=== PATIENT | male | born 1960 | race Caucasian/White ===

== ENCOUNTER 2019-04-23 10:00 | Outpatient (RCR) | payer MEDICAID, SELFPAY ==
--- NOTE | 2019-04-23 17:52 | HP.OTFCE_ITS ---
HP OT Functional Capacity Eval Date of Evaluation: 04/23/19 - two day FCE occuring 04/17/19 and 04/23/19 - Task Lift Floor (Occasional 1-33% of Day): 20 lbs Floor (Frequent 34-66% of Day): 10 lbs Floor (Constant 67-100% of Day): negligible Floor PDL: Light Knee (Occasional 1-33% of Day): 20 lbs Knee (Frequent 34-66% of Day): 10 lbs Knee (Constant 67-100% of Day): negligible Knee PDL: Light Waist (Occasional 1-33% of Day): 15 lbs Waist (Frequent 34-66% of Day): 10 lbs Waist (Constant 67-100% of Day): negligible Waist PDL: Sedentary-Light Shoulder (Occasional 1-33% of Day): 15 lbs Shoulder (Frequent 34-66% of Day): 7.5 lbs Shoulder (Constant 67-100% of Day): negligible Shoulder PDL: Sedentary-Light Overhead (Occasional 1-33% of Day): 10 lbs Overhead (Frequent 34-66% of Day): 5 lbs Overhead (Constant 67-100% of Day): negligible Overhead PDL: Sedentary Comments: Due to inflamed condition of right hand lifting tasks were difficult as increased pain persistent with light touch to right hand and pain only increased with resistance or load completed. - Work Activity/Posture Bending: Frequent Ability (34-66% of day) Squatting: Frequent Ability (34-66% of day) Kneeling: Occasional Ability (1-33% of day) Comments: should avoid Reaching out: Frequent Ability (34-66% of day) Reaching up: Frequent Ability (34-66% of day) Sitting: Frequent Ability (34-66% of day) Walking: Occasional Ability (1-33% of day) Comments: 30-33% Standing: Frequent Ability (34-66% of day) - Reference Duration Sedentary Sedentary Light Light Light Medium Medium Medium Heavy Very Heavy Heavy Occasional (0-33% of day) Frequent (34-66% of day) Constant (67-100% of day) 10 # Negligible Negligible 15 # 8 # Negligible 20 # 10# Negli. 35 # 18 # 7 # 50 # 25 # 10 # 75 # 100 # >100 # 38 # 50 # >50 # 15 # 20 # >20 # - Patient Information Height: 1.7 m Weight:: 111.13 kg Hand Dominance: right BP (Medication Use/Usual Values per pt report): Yes - Medical History Medical History Including Restrictions: No medical restrictions provided by patient or doctor. Visible flare of right hand with increased edema around fingers and joints likely secondary to gout. - Diagnoses Diagnoses: Past medical history: Multiple Sclerosis, gout, arthritis (generalized), history of left total hip replacement, right total knee replacement, high blood pressure, borderline diabetic, two myocardial infarcts. Current: Referred for functional capacity evaluation due to change in status and increased difficulty to complete work-related tasks. Gout flare noted in right hand. - Symptoms Symptoms: Symptoms include pain, that includes both achiness and sharp pain, and decreased sensation in bilateral feet. Symptoms are constant. He noted feet consistently feel like he is walking on nayla. He often experiences gout induced inflammation at joints at random. He currently in experiencing gout- induced inflamed right hand. - Pain Pain: Noe noted he is in constant pain between multiple sclerosis and gout. He noted pain is generalized throughout body and is achy when he is not moving but increases to sharp pains when completing motor movements. He is currently not working with a drivability technician, neurologist, or pain management doctor. He is working with primary care, Dr. Fisher, who is working on getting him into the [facility] and into drivability technician for further care related to his multiple sclerosis and gout per Noe's report. Further, Noe does not take prescribed pain medications but over- the -counter pain medications such as Tylenol and Aleve to help manage symptoms. He did not take over-the - counter pain medications as instructed by therapist prior to day 1 assessment. His blood pressure vanessa and was consistently high on day one indicating the potential of increased pain and uncontrolled hypertension to the point that the assessment was terminated due to safety concerns. He was instructed to take pain medications prior to day 2 assessment due to increased blood pressure causing termination of day 1 assessment. This seemed to help maintain blood pressure in safe range to complete assessment. Sofy Pain Questionnaire is a self-report pain assessment to determine a patient?s accurate psychodynamics for accurate pain rating. A score of 30 or high indicates poor psychodynamics and the greater probability of decreased accuracy with accurate pain reporting. Day 1: Pre- Sofy: 44. Post Sofy: 23. Inconsistent reporting of pain as noted pain high during assessment but then decreased on Sofy Questionnaire. Day 2: Pre- Sofy: 17. Post Sofy: 16. Inconsistent reporting of pain as noted pain high during assessment but then decreased on Sofy Questionnaire. Completed use of Quick Disabilities of Arm, shoulder and hand to promote increased perceived disabilities of upper extremities. Day 1: - pretestin/55. - post testin/55. Pain inconsistent as scores reduced indicating less pain at end of session when symptoms maintained or increased per patient reporting during assessment. Day 2: - pretestin/55. - post testin/55. Pain inconsistent as scores reduced indicating less pain at end of session when symptoms maintained or increased per patient reporting during assessment. 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 He noted that job required frequently standing, walking, and lifting. He used alexander to lift parts that are too heavy to lift manually and noted that his company was allowing him to write more codes for the machines to complete programming. He worked 40-hour week and completed about eight-hour workdays. - Behavioral Behavioral: Noe was pleasant and cooperative for each session. He was willing to attempt all tasks asked regardless of pain or discomfort. Some inconsistencies were noted but some of the inconsistencies were associated with compensations due to inflamed right hand. He is currently work with Dr. Fisher to get into the [facility] for multiple sclerosis treatments as well as to see a drivability technician at [facility]. - ADLS ADLS: Noe lives in two story, splint-level ran home, with . He noted there are no steps to enter but 13 stairs to get to second level where his bedroom, living room,kitchen, and bathroom are located. He has handrail to upstairs. He noted he was working until December of 2018 but increased symptoms and shop permently close and is currently unemployed. He is still completing all self- care tasks independently and continues with ability to complete simple meal preparation, driving, and general tasks around home. - Physical Examination Physical Examination: The purpose of this functional capacity evaluation (FCE) was to determine Noe?s physical ability. This FCE was performed in order to heater operator helper in the determination of his physical ability. Aerobic limiting factor: 85% of max adjust HR= (220-age) *.85= 136 bpm. Calculated max weight: 60% of weight= 147 lb. Beginning Diagnostics: -Blood pressure: 180/78 mmHg. -Heart rate: 65 bpm. -Oxygen saturation at room air: 98%. -Perceived pain with scale: 4/10, right hand is 8/10. Day 1: Noe completed the first half of the FCE today 04/17/19. However, due to consistently high blood pressure that did rise with physical exertion and did not easily decrease the assessment was terminated and rescheduled for later date to ensure safety. Noe remained very understanding. Day 2: Beginning diagnostics: -Blood pressure: 145/80 mmHg. -Heart rate: 55 bpm. -Oxygen saturation at room air: 96%. -Perceived pain with scale: Hand 3/10 at rest. Noe completed FCE on day 2 with ability to maintain safety with blood pressure remaining in safe range for assessment. ROM: Day 1: Range of motion of bilateral hands due to current flare on right hand and normal baseline on left hand: Wrist. - flexion R 0-36 , L 0-53. - extension: R 0-15 , L 0-35. - supination: R 0-70 , L 0-74. Hand: MCP 2nd- 5th digits. 2nd R 18-64 , L 21-75 , 3rd R 20-64 , L 16-76 , 4th R 9-41 , L 0-70 , 5th R 6-42 , L 0-73. PIP 2nd-5th digits. 2nd R 14-65 , L 18-87 , 3rd R 13-54 , L 4-84 , 4th R 36- 46, L 20-62 , 5th R 26-46 , L 0-59. DIP 2nd-5th digits. 2nd R 16-42, L 5-50 , 3rd R 15-38 , L 0-55 , 4th R 9-24 , L 0-49 , 5th R 11-22 , L 0-55. Unable to make full composite fist with bilateral hands. For right hand: 6.5 cm from middle finger to palm and left hand 4 cm from ring finger to palm. Resting tremors and essential tremors noted in bilateral hands. He noted tremors are intermittent but was noticed consistently during evaluation. Skin red and hot to touch. Inflammation noted in right hand. Day 2 measurements: Wrist. - flexion R 0-30, L 0-61. - extension: R 0-20, L 0-30. - supination: R 0-74, L 0-90. Hand: MCP 2nd-5th digits. 2nd R 27-50, L 0-92 , 3rd R 28-64, L 0-85, 4th R 25-64, L 0-90 , 5th R 24-59, L 0-93. PIP 2nd-5th digits. 2nd R 0-70, L 0-95, 3rd R 5-68, L 0-93 , 4th R 27-68, L 0-80 , 5th R 27- 60, L 0-74. DIP 2nd-5th digits. 2nd R 0-44, L 0-35 , 3rd R 0-53, L 0-54 , 4th R 0-45, L 0-49 , 5th R 0-39 , L 0-15. Unable to make full composite fist with bilateral hands. For right hand: 2 inches from ring finger to palm and left hand is able to make full composite fist. Edema noted right hand: Circumference of MCP: R 9.5 inch, L 8.3 inches. Figure 8 measurement R 19 inches, L 17.5 inches. Skin dry, and warm to touch on right when comparing to left hand. Increased swelling observed of right hand. Strength: Completed Day 1: Strength measurements completed with use of manual muscle testing and short arm access of dynamometer. Results are as follows: Upper Body: Shoulder flexion: -Dynamometer: R 12.4 , L 11.4 lbs. Shoulder extension: -Dynamometer: R 9.0 , L 8.0 lbs. Shoulder abduction: - Dynamometer: R 10.8 , L 12.0 lbs. Shoulder adduction: -Dynamometer: R 11.6 , L 14.8 lbs. Shoulder Internal Rotation: -Dynamometer: R 4.6 , L 10.0 lbs. Shoulder External Rotation: -Dynamometer: R 10.4 , L 10.8 lbs. Elbow flexion: -Dynamometer: R 14.4 , L 14.6 lbs. Elbow extension: -Dynamometer: R 11.8 , L 11.6 lbs. Lower Body: Hip flexion: -Dynamometer: R 11.8 , L 16.2 lbs. Hip adduction: -Dynamometer: R 13.5 , L 13.6 lbs. Hip abduction: -Dynamometer: R 12.4 , L 10.4 lbs. Knee Flexion: -Dynamometer: R 24.6 , L 17.0 lbs. Knee extension: -Dynamometer: R 26.9 , L 16.9 lbs. Plantarflexion: -Dynamometer: R 14.9 , L 22.2 lbs. Dorsiflexion: - Dynamometer: R 36.1 , L 30.5 lbs. Completed on distal end points with hand held dyanmometer. Right Accredited Pharmacy Technician Strength Average: 6.00 Right Accredited Pharmacy Technician Strength Percentile: Increased gout flare noted. Below 10th. Left Accredited Pharmacy Technician Strength Average: 28.00 Right Lateral Pinch Average: 4.33 Right Lateral Pinch Percentile: below 10th Left Lateral Pinch Average: 7.66 Left Lateral Pinch Percentile: below 10th Right Tripod Pinch Average: 3.66 Right Tripod Pinch Percentile: below 10th Left Tripod Pinch Average: 6.66 Left Tripod Pinch Percentile: below 10th Comments: Strength and pinch assessment completed on Day1 of assessment. Five span molding sander testing also completed on day 1 of assessment. Five Span Accredited Pharmacy Technician testing on Dynamometer: Position 1: R 5 , L 15. Position 2: R 10 , L 29. Position 3: R 11 ,L 35. Position 4: R 10 , L 28. Position 5: R 11 , L 25. A coefficient of variation greater than 15 % indicated decreased consistency of effort. Coefficient of variation: R 27%, L 28%. Consistency of Effort: inconsistent. Day 2: Completed strength measurements for molding sander and pinch strength again due to increase in range of motion and results as follows: Right molding sander: trial 1: 10. trial 2: 6. trial 3: 6. - Average: 7. Left molding sander: trial 1: 26. trial 2: 35. trial 3: 29. - Average: 30. R lateral pinch. trial 1: 7. trial 2: 8. trial 3: 8. - Average:12. L lateral pinch. trial 1: 10. trial 2: 11. trial 3: 12. - Average:11. Right Tripod Pinch: trial 1: 3. trial 2: 4. trial 3: 4. - Average:5. Left tripod Pinch. trial 1: 10. trial 2: 11. trial 3: 13. - Average: 11. Some increase din right handed molding sander strength with increased range of motion; but right hand still remains limited. Sensation: Sensation testing completed on bilateral hands with monofilament touch test. A score of normal on touch test is 2.83 and within normal range with just some discrepancies for light touch is between 3.22-3.61. The higher the number in more complications related to patient?s ability to perceive touch related sensory stimuli. . R hand: Thumb 3.22 ,2nd 3.61 , 3rd 4.08 , 4th 3.22 , 5th 3.61. L hand: Thumb 4.08 ,2nd 4.08 , 3rd 3.84 , 4th 3.84 , 5th 3.61 Fine Motor: Completed the Purdue Pegboard test on day 1 of assessment to further determine the patient?s ability to complete 2-3 step tasks, assess fine motor control and general dexterity needed to complete assembly like work. The results are as follows: Right Hand: 4. -Percentile: below 5th. Left Hand: 8. - Percentile: below 1st. Both Hands:4. -Percentile: below 5th. R+ L+ Both: 16. -percentile: below 5th. Assembly: 1. -percentile: below 1st. Completed task in standing with compensatory movements noted during completion. Increased difficulty with grasping of pegs and other items with right hand and fingers due to limited range of motion likely due to gout. Mechanical deficits noted with right hand and needs increased compensatory movements of shoulder to complete manipulation and placement of pegs. Noe was observed to be complete left lateral leaning to left upper extremity due to right hand pain and decreased mobility. Day 2: Completed 9 hole pegboard test to promote increased measurement of finger dexterity tasks needed to promote bilateral use of each hand. Average of three trials: R: 50.60 seconds. - percentile: 0. L: 32.93 seconds. - percentile: around 10th. Completed in standing to promote determination of static standing task endurance and assessment. Balance: Completed on day 1 of assessment. Functional reach test is used to determine static balance in patients. A score of 15 is normal and less than 10 increases risk of falling. A score of 6 or less significantly increases a patient?s risk of falling. Ronan 1: 8.5. Ronan 2: 12. Ronan 3: 12. Average: 11. Static balance is intact based on assessment. Functional Gait Assessment (FGA) is a dynamic balance test to determine vestibular functioning and general dynamic balance ability of patient 18-65+. This assessment can be used with clients of various backgrounds to determine functional dynamic balance needed to complete every day work related tasks. 1.Gait Level Surface: 1. 2.Change in Gait Speed: 1. 3.Gait with horizontal head turns:1. 4.Gait with vertical head turns:1. 5.Gait and pivot turn:2. 6.Step over obstacle:1. 7.Gait with narrow base of support: 0. 8.Gait with eyes closed: 1. 9.Ambulating Backwards: 2. 10.Steps: 1. Total Score: 11 /maximum score 30. Completed blood pressure post FGA and blood pressure was 179/100 mmHg. This was after sitting for 2 minutes. Due to consistently high blood pressure, with multiple measurements, continued seated break initiated, and assessment eventually terminated as blood pressure did not decrease. He is on blood pressure medications but noted blood pressure is normally high when in pain. Since further assessment would require increased physical exertion it was deemed unsafe to continue as it would likely increase blood pressure. He takes over the counter pain medications only and did not take as instructed for more accurate assessment today. He will be seen for second day assessment and it is recommended he takes normal over the counter pain medications to heater operator helper in management of blood pressure. - Non Material Handling Activities Bending: Heart rate prior to beginning with use of pulse oximeter: 48 bpm. 3x, 10x in 32.35 seconds, and 10x 30 faster in seconds. Completed with good body mechanics and ability to complete full bending from standing. Completed with equal weightbearing into bilateral lower extremities. He exhibits increased dizziness post task with slight loss of balance and ability to self correct. Increase in heart rate reflective of phyiscal exertion. Heart rate posttest with use of pulse oximeter: 77 bpm. Perceived pain: dizzness no pain. Squatting: Heart rate prior to beginning with use of pulse oximeter: 76 bpm. 3x, 10x in 23.66 seconds, and 10x faster in 22.20 seconds. Fair body mechanics observed with ability to complete 75% of full squat. As tasks progressed increased mechanical compensations observed with lateral twist to left side to move from squat to stand. No increase in heart rate to be reflective of pain or increase in exertion. Can completed tasks frequently. Heart rate posttest with use of pulse oximeter: 79 bpm Kneeling: Heart rate prior to beginning with use of pulse oximeter: 62 bpm. 3x only. Completed with poor body mechanics and decreased balance. He had one time loss of balance to left side with right lower extremity as lead. Completed next to mat table for external support. He has ability to complete on occassion for no more than 10% of day. He should avoiddue to poor balance observed. Heart rate posttest with use of pulse oximeter: 77 bpm. Percieevd pain: 5/10 in bilateral feet. Reaching out/up: Heart rate prior to beginning with use of pulse oximeter: 50 bpm. 3x, 10x in 9.32 seconds, and 10x faster in 9.10 seconds. Heart rate posttest with use of pulse oximeter: 61 bpm. Perceived pain: right hand pain 4/10. Heart rate prior to beginning with use of pulse oximeter: 81 bpm. 3x, 10x in 9.46 seconds, and 10x faster in 8.10 seconds. Heart rate posttest with use of pulse oximeter: 60 bpm. Perceived pain: right hand 5/10 pain. Noe exhibits normal range for reaching out and overhead. He is able to complete bilateral upper extremity reaching out and up with good body mechanics. No mechanical changes or compensations observed as tasks progressed. Exhibit ability to complete both tasks frequently. Walking: Noe can complete occasional walking tasks as he is observed to complete mobility with slight antalgic gait to right side with lateral swing of left lower extremity during gait cycle. As tasks progressed, he noted increased discomfort in bilateral feet. . Perceived pain: bilateral feet 5/10, right hip 3/10 pain Standing: Completed both static and dynamic tasks for day one assessment for 15 mins. Completed weight shift as needed. Exhibits ability to complete frequent static standing. Completed static and dynamic tasks for repetitive movement tasks for total of 23 minutes without need to complete weight shift or implement seated break. Did well with standing tasks and exhibited ability to complete standing frequently. By end of session he was able to complete a total of consistent dynamic and static standing related movements for an hour. Slight mechanical deficits noted of increased antalgic gait during mobility tasks. Some compensations were observed during use of right upper extremity during standing tasks. IF returning to work a potential of seat to use as needed may be beneficial. Sitting: Noe is able to complete 45 minutes of sitting tasks with weightshift as needed. No increase pain observed in sitting. Most of pain related behaviors are in regards to moving right dominant hand. Climbing Stairs: Completed 10 stairs with alternating foot pattern for ascending tasks. Increased neen for two step method for decending stairs.Slight antaglic gait noted with use of one handrail. - Dynamic Occasional Lifting Capacity Floor Lift: Heart rate prior to beginning with use of pulse oximeter: 68 bpm. M aximum weight: 1x 30 lbs. Occasional Liftinx 20 lbs. Frequent liftinx 10 lbs. Noe exhibits fair body mechanics. As task progressed increased mechanical compensations were noted. Noe offsets load slightly to left side due to limited range of motion of right hand. Increased compensatory patterns observed of right wrist with increased flexion and supinated to avoid need for full composite fist which is limited at this time. Increased pain behaviors observed with task for grimace, wince, and holding of breath. Increased heart rate reflective of pain and physical exertion. Heart rate posttest with use of pulse oximeter: 83 bpm. Perceived pain: 8.5/10 Knee Lift: Heart rate prior to beginning with use of pulse oximeter: 66 bpm. Maximum weight: 1x 30 lbs. Occasional Liftinx 20 lbs. Frequent liftinx 10 lbs. Completed task with fair body mechanics. Noe is observed to have equal weightbearing into lower extremity, but right hand is painful and limiting and increased mechanical compensations noted with increased load offset to left upper extremity. Compensatory patterns noted in right wrist and hand due to limited range of motion to promote increased grasp and stability with increased wrist flexion and supination of right forearm to manipulate box. Increased pain behaviors observed with winces and grimace on face. Noe is observed to additionally hold breath during tasks. Increase in heart rate reflective of pain and exertion. Heart rate posttest with use of pulse oximeter: 88 bpm. Perceived pain: 9/10 right hand Waist Lift: Heart rate prior to beginning with use of pulse oximeter: 86 bpm. Maximum weight: 1x 25 lbs. Occasional Liftinx 15 lbs. Frequent liftinx 10 lbs. Completed with fair mechanics. Noe can maintain spinal alignment but guarding behaviors noted of right upper extremity due to right hand gout related flare-up. Increased mechanical deficits noted with decreased ability to form composite fist with increased compensatory patterns observed of wrist and forearm. Cues needed to promote elbow flexion for task and guarding behaviors for right hand exhibit increased segmented lift pattern. Heart rate is not reflexive of increase in pain with task. Heart rate posttest with use of pulse oximeter: 81 bpm. Perceived pain: 3-4/10 in hips, 8.5/10 in right hand, bottom of bilateral feet 5/10 Shoulder Lift: Heart rate prior to beginning with use of pulse oximeter: 62 bpm. Maximum weight: 1x 20 lbs. Occasional Liftinx 15 lbs. Frequent liftinx 7.5 lbs. Noe completed with fair body mechanics. Mechanical deficits and compensatory patterns noted in right upper extremity due to limited range of motion of right hand. Increased reliance on shoulder strength and range observed with increased elevation for placement of box. Pain behaviors observed of wince, grimace, and holding of breath but heart rate not reflective of increase in pain or exertion out of normal range. Pain maintained per patients report. Heart rate posttest with use of pulse oximeter: 68 bpm. Perceived pain: 3-4/10 in hips, 8.5/10 in right hand, bottom of bilateral feet 5/10 Overhead Lift: Heart rate prior to beginning with use of pulse oximeter: 62 bpm. Maximum weight: 1x 20 lbs. Occasional Liftinx 10 lbs- heart rate post lift: 75 bpm. Frequent liftinx 5 lbs. Completed with fair body mechanics. He is able to complete good spinal alignment but inflamed right hand makes appropriate load distribution of box into bilateral upper extremity difficult and mechanical compensations are noted. Some inconsistences noted as with decrease weight mechanics did not improve. Pain behaviors were noted as he did wince and doubled in pain and completion of task and noted that spasm occurred in right hand. This spasm lasted less than 5 seconds and he was observed to weight bear into hand to help manage pain. Heart rate posttest with use of pulse oximeter: 70 bpm. Perceived pain: right hand pain is 9/10, right hip 5/10 Carrying: Heart rate prior to beginning with use of pulse oximeter: 69 bpm. Occasional Liftinx 15 lbs. Frequent liftinx 7.5 lbs. Fair body mechanics but increased mechanical compensations of increased load distribution to left side to decreased weight required to manage by right upper extremity. Increase in heart rate supports increase in exertion and pain but Noe noted pain consistent. Heart rate posttest with use of pulse oximeter: 102 bpm. Perceived pain: right hand 8/10, right hip at 5.10 Comments: Completed cognitive screen with [place] Cognitive Assessment (MoCA) version 7.1 and results as follows: . This is within normal range for score on this cognitive screen. Ending Diagnostics Day 2 ( after repetitive movement and material handling): -Blood pressure: 137 /85 mmHg. -Heart rate: 71 bpm. -Oxygen saturation at room air:95 %. -Perceived pain with scale: Right hip 3/10, right hand 9/10, bilateral feet 4-5/10. Pain did increase with resistive, movement-based tasks but does decrease with rest for right hand. Noe was observed to have an increase in heart rate with and without physical exertion. At times during assessment this increase in heart rate was likely due to pain and exertion but at other times it did not seem provoked. This is of concern with his significant past medical history of myocardial infarcts. Additionally, his blood pressure appears to not be consistently controlled as with increased pain his blood pressure was too high to complete repetitive movements and material handling sections and maintain safely on day 1. On day 2, his blood pressure was consistently in safe range with use of over- the counter pain medications per Noe?s report to complete the noted sections. Due to inflammation of right hand it was difficult to get clear baseline. However, baseline is consistent with gout flare-ups generalized to various locations over his body and location depending would depend on functional limitation. 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
--- NOTE | 2019-04-23 17:52 | HP.OTFCE.D ---
FCE D/C Summary - Discharge CYRIL ESCUDERO was seen for a one time visit for an FCE on 04/17/19 and is discharged.
== END 2019-04-23 19:00 | disposition home or self-care (01) ==
LOC: OT 10:00
PROVIDERS: PCP Family Medicine; Referring Provider Family Medicine; Visit Provider Family Medicine
DX: G35 Multiple sclerosis (principal); M10.9 Gout, unspecified; R27.0 Ataxia, unspecified
CPT/HCPCS: 97750